=== PATIENT | female | born 1945 | race Caucasian/White ===

== ENCOUNTER 2017-05-16 18:17 | Inpatient (IN) | payer BC ==
[~2017-05-16] VITALS: Ht 165.1 cm; Wt 100.6 kg
[~2017-05-16 18:17] MED LIST: ALPR0.5T PO; CARV12.579 PO; FAMO40TA52 PO; MELO-110 PO; METF500T4 PO; TRAM-40 PO; VALS80TA2 PO
[2017-05-16] MEDS ORDERED: ACETAMINOPHEN 500 MG TAB PO STA (21:18)
[2017-05-16] MEDS ORDERED: ASPIRIN 325 MG TAB PO STA (21:18)
[2017-05-16 22:08] LABS: BASOPHILS % 0.6 % (0.0-2.0); EOSINOPHILS # 0.2 10^3/ul (0.0-0.5); EOSINOPHILS % 4.4 % (0.0-7.0); HEMATOCRIT 38.5 % (37.0-47.0); LYMPHOCYTES # 2.3 10^3/ul (0.8-2.9); LYMPHOCYTES % 45.4 % (15.0-51.0); MEAN CORPUSCULAR HEMOGLOBIN 32.7 pg (29.0-33.0); MEAN CORPUSCULAR HGB CONC 33.8 g/dl (32.0-37.0); MEAN CORPUSCULAR VOLUME 96.7 fl (82.0-101.0); MONOCYTE # 0.5 10^3/ul (0.3-0.9); MONOCYTES % 9.1 % (0.0-11.0); NEUTROPHILS % 40.3 % (39.0-77.0); PLATELET COUNT 167 10^3/UL (140-415); RED BLOOD COUNT 3.98 10^6/ul (4.20-5.40)
--- NOTE | 2017-05-16 22:21 | RADRPT ---
PROCEDURE: CHEST - 1 VIEW CLINICAL INDICATION: 72-year-old female with chest pain. TECHNIQUE: A single frontal AP semi-erect portable view of the chest was performed. The images we re reviewed on a PACS workstation. COMPARISON: Chest x-ray February 16, 2016. FINDINGS: The cardiomediastinal silhouette normal limits. There is a shallow inspiration. There is mild biba silar subsegmental atelectasis. There is no evidence for an infiltrate. There is no evidence for c ongestive heart failure. There is no evidence for pneumothorax. The osseous structures are intact. IMPRESSION: Shallow inspiration with mild bibasilar subsegmental atelectasis. .Jaun Thompson MD, Date Time Electronically viewed and signed by .Jaun Thompson MD, on 05/16/2017 22:21 .M/
[2017-05-16 22:28] LABS: INR 1.07; PROTIME 13.9 Sec (12.2-14.2); PT RATIO 1.1
[2017-05-16 22:29] LABS: PARTIAL THROMBOPLASTIN TIME 30.1 Sec (25.0-35.0)
[2017-05-16 22:31] LABS: ANION GAP 12 (8-16); BLOOD UREA NITROGEN 15 mg/dl (7-20); CALCIUM 9.7 mg/dl (8.4-10.2); CARBON DIOXIDE 27 mmol/L (21-31); CHLORIDE 105 mmol/L (97-110); CREATININE 0.75 mg/dl (0.44-1.00); GLUCOSE 104 mg/dl (70-220); POTASSIUM 3.9 mmol/L (3.5-5.1); SODIUM 140 mmol/L (135-144)
[2017-05-16 22:58] LABS: TROPONIN-I < 0.012 ng/ml (0.00-0.12)
[2017-05-16] MEDS ORDERED: AMLO5TAB4 PO (23:23)
[2017-05-16] MEDS ORDERED: PANT40TA4 PO (23:23)
[2017-05-16] MEDS ORDERED: CARV25TA79 PO (23:23)
[2017-05-16] MEDS ORDERED: NAPR-688 PO (23:23)
[2017-05-16] MEDS ORDERED: GLIP5TAB13 PO (23:27)
[2017-05-17] VITALS (11 sets, daily range): BP systolic 134–177; BP diastolic 62–85; PULSE 62–68; RESP 18–19; Ht 165.1 cm; Wt 100.6 kg
[2017-05-17] MEDS ORDERED: LORAZEPAM 2 MG INJ IV ONE (02:00)
--- NOTE | 2017-05-17 02:48 | ERA ---
ER Documentation Chief Complaint Date/Time DATE: 05/17/17 TIME: 02:46 Chief Complaint chest pain, SOB x 1 week. CP radiating to back and left arm. +BOSCH HPI 72-year-old female with chest pain shortness breath for 1 week. She has been advised to the back and left arm. Pain is mild to moderate intensity with associated diaphoresis. No other current complaints. No nausea no vomiting. ROS All systems reviewed and are negative except as per history of present illness. Medications Home Meds Reported Medications Glipizide* (Glipizide*) 5 Mg Tablet, 10 MG PO AC BREAKFAST BEDTIME, TAB 05/16/17 Pantoprazole* (Pantoprazole*) 40 Mg Tablet.dr, 40 MG PO AC BREAKFAST, TAB 05/16/17 Carvedilol* (Carvedilol*) 25 Mg Tablet, 25 MG PO BID, #60 TAB 05/16/17 Naproxen* (Naproxen*) 500 Mg Tablet, 500 MG PO BID Y for PAIN, TAB 05/16/17 Amlodipine Besylate* (Norvasc*) 5 Mg Tablet, 5 MG PO DAILY, TAB 05/16/17 Meloxicam* (Mobic*) 15 Mg Tablet, 15 MG PO DAILY, #30 TAB 02/17/16 Tramadol Hcl* (Ultram*) 50 Mg Tablet, 50 MG PO BID Y for PAIN, TAB 02/17/16 Discontinued Reported Medications Famotidine* (Famotidine*) 40 Mg Tablet, 40 MG PO HS, #30 TAB 02/17/16 Alprazolam* (Xanax*) 0.5 Mg Tab, 0.5 MG PO BID Y for ANXIETY, TAB 02/17/16 Carvedilol* (Carvedilol*) 12.5 Mg Tablet, 12.5 MG PO BID 01/30/12 Discontinued Scripts Metformin* (Glucophage*) 500 Mg Tab, 500 MG PO WITH BREAKFAST DINNE, #60 TAB Prov:BENJIE GARCIA 02/17/16 Valsartan* (Diovan*) 80 Mg Tablet, 80 MG PO BID for 30 Days, TAB 3 Refills Prov:BENJIE GARCIA F 02/17/16 Allergies Allergies: Coded Allergies: No Known Drug Allergies (Unverified Allergy, Unknown, 05/16/17) Uncoded Allergies: FLU SHOT (Allergy, Unknown, VOMITING,HEADACHE, 02/08/14) PMhx/Soc History of Surgery: No Anesthesia Reaction: No Hx Neurological Disorder: No Hx Respiratory Disorders: No Hx Cardiac Disorders: Yes (HIGH BLOOD PRESSURE) Hx Psychiatric Problems: No Hx Miscellaneous Medical Probl: Yes (KIDNEY STONES; DM) Hx Alcohol Use: No Hx Substance Use: No Hx Tobacco Use: No Smoking Status: Never smoker Physical Exam Vitals Vital Signs Date Time Temp Pulse Resp B/P Pulse Ox O2 Delivery O2 Flow Rate FiO2 05/17/17 02:15 65 20 152/66 95 Room Air 05/17/17 01:00 63 17 158/77 98 Room Air 05/16/17 23:00 62 20 158/71 96 Room Air 05/16/17 22:00 62 17 178/71 97 Room Air 05/16/17 18:44 98.4 73 18 188/96 97 Physical Exam Const: [] Head: Atraumatic Eyes: Normal Conjunctiva ENT: Normal External Ears, Nose and Mouth. Neck: Full range of motion..~ No meningismus. Resp: Clear to auscultation bilaterally Cardio: Regular rate and rhythm, no murmurs Abd: Soft, non tender, non distended. Normal bowel sounds Skin: No petechiae or rashes Back: No midline or flank tenderness Ext: No cyanosis, or edema Neur: Awake and alert Psych: Normal Mood and Affect Result Diagram: 05/16/17214805/16/172148 Results 24 hrs Laboratory Tests Test 05/16/17 21:49 White Blood Count 5.010^3/ul Red Blood Count 3.9810^6/ul Hemoglobin 13.0g/dl Hematocrit 38.5% Mean Corpuscular Volume 96.7fl Mean Corpuscular Hemoglobin 32.7pg Mean Corpuscular Hemoglobin Concent 33.8g/dl Red Cell Distribution Width 13.0% Platelet Count 31625^3/UL Mean Platelet Volume 10.0fl Neutrophils % 40.3% Lymphocytes % 45.4% Monocytes % 9.1% Eosinophils % 4.4% Basophils % 0.6% Nucleated Red Blood Cells % 0.0/100WBC Neutrophils # (Manual) 2.010^3/ul Lymphocytes # 2.310^3/ul Monocytes # 0.510^3/ul Eosinophils # 0.210^3/ul Basophils # 0.010^3/ul Nucleated Red Blood Cells # 0.010^3/ul Prothrombin Time 13.9Sec Prothrombin Time Ratio 1.1 INR International Normalized Ratio 1.07 Activated Partial Thromboplast Time 30.1Sec Sodium Level 140mmol/L Potassium Level 3.9mmol/L Chloride Level 105mmol/L Carbon Dioxide Level 27mmol/L Anion Gap 12 Blood Urea Nitrogen 15mg/dl Creatinine 0.75mg/dl Glucose Level 104mg/dl Calcium Level 9.7mg/dl Troponin I < 0.012ng/ml Current Medications Medications (Trade) Dose Ordered Sig/Teodoro Route PRN Reason Start Time Stop Time Status Last Admin Dose Admin Aspirin (Aspirin) 325 mg ONCE STAT PO 05/16/17 21:18 05/16/17 21:20 DC 05/16/17 22:10 Acetaminophen (Tylenol Tab) 1,000 mg ONCE STAT PO 05/16/17 21:18 05/16/17 21:20 DC 05/16/17 22:10 Lorazepam (Ativan) 1 mg ONCE ONCE IV 05/17/17 02:00 05/17/17 02:01 DC 05/17/17 01:56 Procedures/MDM EKG: Rate/Rhythm: Normal Sinus Rhythm QRS, ST, T-waves: No changes consistent w/ acute ischemia Impression: No evidence of ischemia or arrhythmia Chest X-ray 1V Interpreted by me: Soft Tissue: No acute abnormalities Bones: No acute abnormalities Mediastinum/Cardiac Silhouette/Lungs: No acute abnormalities Patient's symptoms are concerning for cardiac cause will require inpatient workup and continuous monitoring. Further w/u for ischemia, arrhythmia, PE or dissection will be deferred to the inpatient team. Accepting Care Team: Current data and ongoing care discussed. Time: 2:30 AM Primary Provider: Eris Consulting: [XOXOXO] Outstanding Data: none Departure Diagnosis: Primary Impression: Chest pain Qualified Code: R07.9 - Chest pain, unspecified type Condition: Serious JAYDEN MOYA May 17, 2017 02:47
[2017-05-17 04:24] LABS: CREATINE KINASE 86 IU/L (23-200)
[2017-05-17 04:35] LABS: CK-MB 0.81 ng/ml (0.0-2.4)
[2017-05-17 04:40] LABS: TROPONIN-I < 0.012 ng/ml (0.00-0.12)
[2017-05-17] MEDS ORDERED: ONDANSETRON 4 MG INJ IV PRN (06:00)
[2017-05-17] MEDS ORDERED: ACETAMINOPHEN 325 MG TAB PO PRN (06:00)
[2017-05-17] MEDS ORDERED: AMLODIPINE 5 MG TAB PO SCH ×2 (07:00→09:00)
[2017-05-17] MEDS ORDERED: GLUCOSE GEL 15 GRAM TUBE BUCCAL PRN (07:00)
[2017-05-17] MEDS ORDERED: GLUCOSE GEL 15 GRAM TUBE PO PRN ×2 (07:00)
[2017-05-17] MEDS ORDERED: DEXTROSE 50% 50 ML SYRINGE IV PRN ×2 (07:00)
[2017-05-17] MEDS ORDERED: GLUCAGON 1 MG INJ IM PRN (07:00)
[2017-05-17] MEDS: PANTOPRAZOLE (EC) 40 MG TAB PO SCH (07:10)
[2017-05-17] MEDS: AMLODIPINE 5 MG TAB PO SCH (07:25)
[2017-05-17] MEDS: INSULIN ASPART [NOVOLOG] 3 ML PEN SC SCH ×4 (07:55→21:00)
[2017-05-17] MEDS: glipiZIDE 5 MG TAB PO SCH ×2 (08:06→18:00)
--- NOTE | 2017-05-17 10:36 | HP ---
Date/Time of Note Date/Time of Note DATE: 05/17/17 TIME: 10:30 Assessment/Plan VTE Prophylaxis VTE Prophylaxis Intervention: SCD's Lines/Catheters IV Catheter Type (from [facility]): [facility] Urinary Cath still in place: No Assessment/Plan Assessment/Plan 72-year-old female with; 1. Chest pain, left-sided, radiating to the left shoulder, reproducible on palpation, previous similar history over the past year, negative angiogram in 2011, negative cardiac workup last year, negative cardiac enzymes 2 so far with a stable EKG. 2D echocardiogram pending to complete workup. Likely atypical chest pain, CT angiogram of the chest pending as patient has been hypertensive and reports some dyspnea on exertion as an outpatient. Blood pressure control Check fasting lipid panel and hemoglobin A1c. Hold off NSAIDs, proton pump inhibitors possible gastritis. 2. Transient left-sided weakness reported, left-sided headache with left-sided facial numbness transient, correlating with elevated blood pressure. Blood pressure control MRI/MRA brain, MRA neck pending 3. Hypertension, uncontrolled: Continue outpatient medication, will add ARB/ Cozaar given her history of diabetes and need for additional blood pressure control. 4. Morbid obesity: Lifestyle modification, patient is trying to exercise more but limited by current symptoms. Diabetic, low-fat, low-sodium diet. 5. Gastritis/gastroesophageal reflux disease: Continue proton pump inhibitors Prophylaxis: SCDs to lower extremity for DVT prophylaxis, proton pump inhibitors Disposition: Blood pressure control, MRI/MRA brain, MRA neck pending, CT angiogram pending, follow-up on third cardiac enzymes and 2D echocardiogram done today. Discharge planning likely in a.m. HPI/ROS Admit Date/Time Admit Date/Time May 17, 2017 at 02:36 Hx of Present Illness Chief complaint: Chest pain, left-sided headache, left shoulder pain. History of presenting illness: This is a 72-year-old female, with history of hypertension difficult to control, morbid obesity, diabetes mellitus, hyperlipidemia who presented emergency department with complaint of left-sided chest pain radiating to her shoulder, also reporting headache and occasional slurred speech. Patient did discuss her symptoms with her primary care physician apparently the day prior and was told to go to the emergency department, she waited 24 hours before coming to the ER with ongoing symptoms. Patient reports that for the past week or 2 she has been having intermittent episodes of left-sided chest pain radiating to her shoulder, she does not feel well overall. She has been having episodes of headaches primary left-sided with sometimes slurred speech. She reports compliance with her medications, she checks her blood sugars, checks her blood pressure and reports that the highest systolic blood pressure had a home or 150s-160s. She is noted to be significantly hypertensive in the emergency department with systolic blood pressures in the 190s. She does report that her symptoms seem to be noticeable when her blood pressure runs high. She had a chest x-ray in the emergency department which was unremarkable. She was admitted for rule out acute coronary syndrome. She did have an angiogram in 2011 with no obstructive coronary artery disease. She had an echocardiogram last year which was stable. Her cardiac enzymes are negative 2 this morning, echocardiogram was done. Based on her history and reports of transient neurological symptoms, MRI MRA of the brain will be obtained. I will also do a CT angiogram of her chest to rule out aneurysm as her chest pain is significantly atypical, she already had a negative cardiac workup, will look for alternative diagnosis. She denies fevers, chills, abdominal pain, urinary symptoms, cough, shortness of breath. She does report dyspnea on exertion and inability to complete her exercise routine like she used to for the past 2 weeks. ROS Constitutional: fatigue Respiratory: other (Decreased exercise tolerance, dyspnea on exertion) Cardiovascular: chest pain Gastrointestinal: no complaints Genitourinary: no complaints Musculoskeletal: other (Left shoulder pain) Neurologic: headache (Transient, primarily left-sided) Psychological: no complaints PMH/Family/Social Past Medical History Hypertension Hyperlipidemia Diabetes mellitus Morbid obesity Gastroesophageal reflux disease versus gastritis Chest wall left-sided atypical pain for months to years Past Surgical History Past Surgical Hx: other (Status post back surgery remotely) Social History She lives alone Alcohol Use: none Smoking Status: Never smoker Drug Use: none Exam/Review of Systems Vital Signs Vitals Vital Signs Date Time Temp Pulse Resp B/P Pulse Ox O2 Delivery O2 Flow Rate FiO2 05/17/17 08:32 62 18 167/77 96 Room Air 05/17/17 07:33 98.1 Exam Constitutional: alert, oriented, well developed (Morbidly obese) Respiratory: clear to auscultation, normal air movement Cardiovascular: nl pulses, regular rate and rhythm Gastrointestinal: non-tender, soft Musculoskeletal: nl extremities to inspection Extremities: normal pulses, other (No edema, clubbing or cyanosis) Neurological: [employer]OTHING SU[employer]OR II-XII intact, nl mental status, nl speech, nl strength, other (Resolved left sided facial numbness) Labs Result Diagram: 05/16/17214805/16/172148 Medications Medications Current Medications Ondansetron HCl (Zofran Inj) 4 mg Q4H PRN IV NAUSEA AND/OR VOMITING; Start at 06:00 Pantoprazole (Protonix Tab) 40 mg DAILY@06 PO Last administered on 05/17/17 07 :10; Admin Dose 40 MG; Start 05/17/17 at 06:00 Acetaminophen (Tylenol Tab) 650 mg Q6H PRN PO PAIN AND OR ELEVATED TEMP; Start 05/17/17 at 06:00 Diagnostic Test (Pha) (Accu-Chek) 1 ea 02 XX ; Start 05/18/17 at 02:00 Diagnostic Test (Pha) (Accu-Chek) 1 ea 02 XX ; Start 05/18/17 at 02:00 Miscellaneous Information 1 ea NOTE XX ; Start 05/17/17 at 07:00 Glucose (Glutose) 15 gm Q15M PRN PO DECREASED GLUCOSE; Start 05/17/17 at 07:00 Glucose (Glutose) 22.5 gm Q15M PRN PO DECREASED GLUCOSE; Start 05/17/17 at 07: 00 Dextrose (D50w Syringe) 25 ml Q15M PRN IV DECREASED GLUCOSE; Start 05/17/17 at 07:00 Dextrose (D50w Syringe) 50 ml Q15M PRN IV DECREASED GLUCOSE; Start 05/17/17 at 07:00 Glucagon (Glucagen) 1 mg Q15M PRN IM DECREASED GLUCOSE; Start 05/17/17 at 07:00 Glucose (Glutose) 15 gm Q15M PRN BUCCAL DECREASED GLUCOSE; Start 05/17/17 at 07 :00 Amlodipine Besylate (Norvasc) 5 mg DAILY PO Last administered on 05/17/17 07: 25; Admin Dose 5 MG; Start 05/17/17 at 07:07 Carvedilol (Coreg) 25 mg BID PO Last administered on 05/17/17 07:25; Admin Dose 25 MG; Start 05/17/17 at 07:07 Losartan Potassium (Cozaar) 25 mg BID PO ; Start 05/17/17 at 10:00 Procedures Procedures PROCEDURE: CHEST - 1 VIEW CLINICAL INDICATION: 72-year-old female with chest pain. TECHNIQUE: A single frontal AP semi-erect portable view of the chest was performed. The images were reviewed on a PACS workstation. COMPARISON: Chest x-ray February 16, 2016. FINDINGS: The cardiomediastinal silhouette normal limits. There is a shallow inspiration. There is mild bibasilar subsegmental atelectasis. There is no evidence for an infiltrate. There is no evidence for congestive heart failure. There is no evidence for pneumothorax. The osseous structures are intact. IMPRESSION: Shallow inspiration with mild bibasilar subsegmental atelectasis. EKG 05/16/17: Reviewed, normal sinus rhythm, no acute changes or chronic changes seen. BENJIE GARCIA May 17, 2017 10:36
[2017-05-17] MEDS: LOSARTAN 25 MG TAB PO SCH ×2 (11:26→21:48)
--- NOTE | 2017-05-17 11:44 | RADRPT ---
Echocardiogram Report Patient Name: KAREN SUBRAMANIAN Gender: Female Date: 1945 Study Date: 17-May-2017 Salvage Winder And Inspector: Elvia Love [facility] Location: [id number] Ref. Physician: CHARLEE DUBOIS Quality: Adequate Procedures: Transthoracic echocardiogram with complete 2D, M-Mode, and doppler examination. Indications: Chest Pain. 2D/M Mode Doppler Measurement Value Normal Ranges Measurement Value Normal Ranges AoR Diam MM 3.0 cm SOWMYA Vmax 2.7 cm2 ACS MM 1.9 cm SOWMYA VTI 2.7 cm2 LA/Ao MM 1.1 AV Mean Kwabena 0.9 m/sec LA Dimen MM 3.4 cm AV Mean PG 3.6 mmHg LVIDd 2D 4.5 3.5 - 5.6 cm AV Peak Kwabena 1.2 m/sec LVIDs 2D 3.2 2.1 - 4.1 cm AV Peak PG 6.2 mmHg LVPWd 2D 1.1 0.6 - 1.1 cm AV VTI 26.8 cm IVSd 2D 1.0 0.6 - 1.1 cm LVOT Peak Kwabena 1.1 m/sec EDV 2D 92.5 cm3 LVOT Peak PG 4.7 mmHg ESV 2D 32.0 cm3 MV E Peak Kwabena 0.7 m/sec LA Dimen 2D 3.4 2.3 - 4.0 cm MV A Peak Kwabena 1.0 m/sec LVOT Diam 2.0 cm MV E/A 0.7 MV Decel Time 275 msec MV Decel Barron 3 MV E/A 0.7 TR Peak Kwabena 1.9 m/sec TR Peak PG 14.6 mmHg RVSP 23.0 mmHg Findings Left Ventricle: Normal left ventricular systolic function. Normal left ventricular cavity size. Mild concentric left ventricular hypertrophy. Ejection fraction is visually estimated at 60 %. Tissue Doppler/Mitral Doppler indices are consistent with impaired relaxation (Stage I diastolic dysfunction). Right Ventricle: Normal right ventricular size. Normal right ventricular systolic function. Left Atrium: The left atrium is normal in size. Right Atrium: The right atrium is normal in size. Mitral Valve: Normal appearance and function of the mitral valve with trace physiologic regurgitation. Aortic Valve: Normal appearance of the aortic valve. No significant aortic stenosis or insufficiency. Tricuspid Valve: Normal appearance of the tricuspid valve. Estimated peak PA systolic pressure 23 mmHg. There is trace tricuspid regurgitation. Pulmonic Valve: Normal pulmonic valve appearance. Pericardium: Normal pericardium with no significant pericardial effusion. Aorta: Normal aortic root. IVC: The IVC is not well visualized. Conclusions 1.Normal left ventricular systolic function. Normal left ventricular cavity size. Mild concentric left ventricular hypertrophy. Ejection fraction is visually estimated at 60 %. Tissue Doppler/Mitral Doppler indices are consistent with impaired relaxation (Stage I diastolic dysfunction). 2.Normal right ventricular size. Normal right ventricular systolic function. 3.The left atrium is normal in size. 4.The right atrium is normal in size. 5.No significant valvular stenosis or regurgitation seen. 6.Normal pericardium with no significant pericardial effusion. Electronically Signed By: Mars Daniels 17-May-2017 11:44:04 -0700 Patient Name: KAREN SUBRAMANIAN Study Date: 17-May-2017 [id number]
[2017-05-17 12:33] LABS: BASOPHILS % 0.4 % (0.0-2.0); EOSINOPHILS # 0.2 10^3/ul (0.0-0.5); EOSINOPHILS % 4.3 % (0.0-7.0); HEMATOCRIT 39.2 % (37.0-47.0); HEMOGLOBIN 13.1 g/dl (12.0-16.0); LYMPHOCYTES # 1.9 10^3/ul (0.8-2.9); LYMPHOCYTES % 43.2 % (15.0-51.0); MEAN CORPUSCULAR HEMOGLOBIN 32.8 pg (29.0-33.0); MEAN CORPUSCULAR HGB CONC 33.4 g/dl (32.0-37.0); MEAN CORPUSCULAR VOLUME 98.2 fl (82.0-101.0); MEAN PLATELET VOLUME 10.2 fl (7.4-10.4); MONOCYTE # 0.5 10^3/ul (0.3-0.9); MONOCYTES % 12.1 % (0.0-11.0); PLATELET COUNT 181 10^3/UL (140-415); RED BLOOD COUNT 3.99 10^6/ul (4.20-5.40); RED CELL DISTRIBUTION WIDTH 13.1 % (11.5-14.5); WHITE BLOOD COUNT 4.5 10^3/ul (4.8-10.8)
[2017-05-17 12:57] LABS: CHOL/HDL RATIO 5.4 RATIO
[2017-05-17 12:58] LABS: CREATINE KINASE 82 IU/L (23-200)
[2017-05-17 12:59] LABS: CALCIUM 9.6 mg/dl (8.4-10.2); CREATININE 0.7 mg/dl (0.44-1.00); POTASSIUM 4.2 mmol/L (3.5-5.1)
[2017-05-17 13:10] LABS: CK-MB 0.66 ng/ml (0.0-2.4)
[2017-05-17 13:12] LABS: TROPONIN-I < 0.012 ng/ml (0.00-0.12)
[2017-05-17] MEDS ORDERED: IODIXANOL LOCM 50 ML BTL ONE (13:39)
[2017-05-17] MEDS ORDERED: SOD CHLORIDE 0.9% 100 ML ONE (13:39)
[2017-05-17] MEDS ORDERED: IODIXANOL LOCM 100 ML BTL ONE (13:39)
--- NOTE | 2017-05-17 15:03 | RADRPT ---
PROCEDURE: CT angiogram of the chest with contrast. CLINICAL INDICATION: Rule out pulmonary embolism or aneurysm. TECHNIQUE: CT scan of the chest with contrast was performed on a multidetector high-resolution CT scan. The patient was scanned following the uncomplicated intravenous administration of 100 ml Omni paque 350. Coronal and sagittal reformatted images were obtained from the axial source images. Stand marc CT angiogram of the chest with contrast protocols were performed. 2-D and 3-D reformats were per formed. The total exam CTDI equals 19.99 mGy and the total exam DLP equals 803.04 mGy-cm. One or more of the following dose reduction techniques were used: - Automated exposure control. - Adjustment of the mA and/or kV according to patient size. Use of iterative reconstruction technique. COMPARISON: Chest same day FINDINGS: The pulmonary outflow tract, right and left main pulmonary arteries, right and left interlobar and primary intersegmental pulmonary arteries are enhance without filling defects. Specifically no cent ral pulmonary emboli. There is no evidence of pulmonary arterial hypertension. No evidence of righ t heart strain. There is atherosclerosis of the aorta but no aneurysm or dissection. The celiac axis and SMA demons trate hard atherosclerotic plaque but no hemodynamically significant stenosis. The right left subcl adam arteries and brachial cephalic artery are unremarkable. Proximal right and left common caroti d and vertebral arteries are unremarkable. The heart is within normal limits in size without pericardial effusion. No evidence of pleural effu sions and pneumothorax. No evidence of mediastinal hilar or axillary lymphadenopathy. 6 mm nonca lcified pulmonary nodule involving the posterior inferior right lower lobe. Interval follow up in 6 months is recommended. No other pulmonary nodules bilaterally. There is mild chronic interstitial lung disease involving the lingula left upper lobe, right middle lobe and both lower lobes. No evid ence of acute lung infiltrates. Status post cholecystectomy. No biliary ductal dilation. Images of the upper abdomen are unremarka ble. The thoracic and upper abdominal aguila are unremarkable. There are degenerative changes of the thor acic and upper lumbar spine but no acute osseous findings or osteoblastic/osteolytic lesions. IMPRESSION: 1. No evidence of central pulmonary emboli. No evidence pulmonary arterial hypertension or right he art strain. 2. No evidence of aortic aneurysm or dissection. 3. 6 mm irregular noncalcified pulmonary nodule involving the posterior inferior right lower lobe. Interval follow up in 6 months is recommended. No other pulmonary nodules. 4. No evidence of thoracic effusions or lymphadenopathy. 5. Chronic bilateral interstitial lung disease. 6. Status post cholecystectomy. No biliary ductal dilation. RPTAT:AAJJ Stephenie Perdomo Physician Date Time Electronically viewed and signed by Stephenie Perdomo, Physician on 05/17/2017 15:02 /
[2017-05-17] MEDS ORDERED: SOD CHLORIDE 0.9% 1,000 ML IV SCH (16:00)
[2017-05-17] MEDS: traMADol 50 MG TAB PO PRN ×2 (16:29→23:50)
[2017-05-18] VITALS (13 sets, daily range): BP systolic 101–164; BP diastolic 50–84; PULSE 56–70; RESP 17–19
[2017-05-18] MEDS: ACCU-CHEK XX SCH ×2 (02:00)
[2017-05-18] MEDS: PANTOPRAZOLE (EC) 40 MG TAB PO SCH (06:29)
[2017-05-18] MEDS: glipiZIDE 5 MG TAB PO SCH ×2 (06:31→16:30)
[2017-05-18 07:52] LABS: MAGNESIUM 2.1 mg/dl (1.7-2.5); PHOSPHORUS 5.2 mg/dl (2.5-4.9)
[2017-05-18] MEDS: INSULIN ASPART [NOVOLOG] 3 ML PEN SC SCH ×4 (07:55→21:00)
[2017-05-18 07:58] LABS: ALBUMIN 3.8 g/dl (3.3-4.9); ALBUMIN/GLOBULIN RATIO 0.88; BILIRUBIN,INDIRECT 0.4 mg/dl (0-1.1); BILIRUBIN,TOTAL 0.4 mg/dl (0.2-1.3); CALCIUM 9.1 mg/dl (8.4-10.2); CREATININE 0.71 mg/dl (0.44-1.00); POTASSIUM 3.9 mmol/L (3.5-5.1); TOTAL PROTEIN 8.1 g/dl (6.1-8.1)
[2017-05-18] MEDS: LOSARTAN 25 MG TAB PO SCH ×2 (08:06→21:05)
[2017-05-18] MEDS: AMLODIPINE 5 MG TAB PO SCH (08:07)
--- NOTE | 2017-05-18 09:49 | RADRPT ---
PROCEDURE: MRI Brain without contrast. CLINICAL INDICATION: CVA. TECHNIQUE: An MRI of the brain was performed utilizing the following sequences: Sagittal and axial T1 weighted, axial T2 weighted, axial diffusion weighted with ADC mapping, coronal GRE, and axial F LAIR. COMPARISON: Brain MRI 02/17/2016. FINDINGS: No diffusion weighted abnormalities are seen to suggest the presence of acute ischemia or recent inf arct. No hypointense signal abnormalities are seen on the GRE images to suggest the presence of blo od degradation products. There is no evidence of intracranial hemorrhage, mass effect, or midline s hift. No extra-axial fluid collections are seen. The ventricles and sulci are mildly enlarged indica tive of volume loss. There are mild scattered foci of T2 FLAIR hyperintensity in the periventricular, deep, and subcortic al white matter, which are nonspecific in etiology but likely reflect chronic small vessel ischemic changes. No abnormal intracranial vascular flow void is noted. The visualized paranasal sinuses demonstrate 1 .5 cm probable mucous retention cyst in the left maxillary sinus otherwise mild scattered mucosal th ickening. IMPRESSION: 1. No acute intracranial hemorrhage, infarction or mass. 2. Mild chronic small vessel ischemic changes. 3. Mild generalized cerebral volume loss. RPTAT: HFN .Oliver Holbrook MD, Date Time Electronically viewed and signed by .Oliver Holbrook MD, MD on 05/17/2017 16:00 .N/
--- NOTE | 2017-05-18 09:54 | RADRPT ---
PROCEDURE: US Carotids. CLINICAL INDICATION: Weakness. Clinical concern for stenosis TECHNIQUE: Multiple sonographic of the carotid bifurcation region and vertebral arteries were obta ined utilizing sarkar scale, duplex and color-flow imaging. COMPARISON: 02/17/2016 FINDINGS: RIGHT CAROTID MEASUREMENTS: PSV (cm/s)EDV (cm/s) Common Carotid [id number] Internal Carotid Artery - [id number] Internal Carotid Artery - [id number] Internal Carotid Artery - [id number] External Carotid Artery-79 Vertebral Artery-35 PSVR (ICA/CCA)1.3 LEFT CAROTID MEASUREMENTS: PSV (cm/s)EDV (cm/s) Common Carotid [id number] Internal Carotid Artery - [id number] Internal Carotid Artery - [id number] Internal Carotid Artery - [id number] External Carotid Artery-77 Vertebral Artery-53 PSVR (ICA/CCA)1.3 Intimal thickening involving the distal common carotid artery is greater on the right has not change d significantly since the prior examination There is antegrade flow within the vertebral arteries bilaterally. IMPRESSION: 1. No evidence for hemodynamically significant carotid artery stenosis or interval change from 01/30. 2. Antegrade flow in the vertebral arteries bilaterally. Physician Flor Date Time Electronically viewed and signed by Physician Flor on 05/17/2017 18:32 /
[2017-05-18] MEDS: traMADol 50 MG TAB PO PRN (10:25)
--- NOTE | 2017-05-18 13:52 | PN ---
Date/Time of Note Date/Time of Note DATE: 05/18/17 TIME: 13:52 Assessment/Plan VTE Prophylaxis VTE Prophylaxis Intervention: SCD's Lines/Catheters IV [facility] Saline [facility] Urinary Cath still in place: No Assessment/Plan Assessment/Plan 72-year-old female with; 1. Atypical chest pain, left-sided, radiating to the left shoulder, reproducible on palpation, previous similar history over the past year, negative angiogram in 2011, negative cardiac workup last year, negative cardiac enzymes and stable EKG. 2D echocardiogram unchanged. CT angiogram within normal No further workup needed. 2. Transient left-sided weakness reported, left-sided headache with left-sided facial numbness transient, correlating with elevated blood pressure. Blood pressure control Now patient complaining of generalized weakness, thyroid function testing pending, ESR pending. MRI/MRA brain within normal limits, patient could not tolerate MRA of the neck therefore carotid Dopplers were done and came back stable. 3. Hypertension, uncontrolled: Much better controlled with current regimen. 4. Diabetes mellitus: A1c 6.9, blood sugar well controlled on her outpatient regimen. 5. Morbid obesity: Lifestyle modification, patient is trying to exercise more but limited by current symptoms. Diabetic, low-fat, low-sodium diet. 6. Gastritis/gastroesophageal reflux disease: Continue proton pump inhibitors 7. Chronic back pain: Tramadol as needed for pain. Patient has been on it as an outpatient. Prophylaxis: SCDs to lower extremity for DVT prophylaxis, proton pump inhibitors Disposition: Blood pressure control, thyroid function testing, ESR, apparently patient may qualify for acute rehab unit, if she is eligible for insurance will plan for discharge to ARU in the next 24 hours otherwise she may need to go to a senior care facility. Subjective 24 Hr Interval Summary Free Text/Dictation Patient still has multiple complaints, however she denies chest pain now, denies neurological deficit per se but complains of some pain when swallowing, also with evaluation by PT today patient is easily short of breath, she is again morbidly obese. She does have previous back surgery. She was evaluated by speech therapy the patient has NO dysphagia, just complains of pain on one side of her throat when she swallows. She is again complaining of multiple different complaints and finally is asking for her hair to be checked for possible poisoning. Exam/Review of Systems Vital Signs Vitals Vital Signs Date Time Temp Pulse Resp B/P Pulse Ox O2 Delivery O2 Flow Rate FiO2 05/18/17 12:00 63 05/18/17 11:49 97.9 18 130/61 95 05/17/17 18:50 Room Air Intake and Output 05/17/17 05/17/17 05/18/17 15:00 23:00 07:00 Intake Total 525 ml 500 ml Balance 525 ml 500 ml Exam Constitutional: alert, obese (Morbid), oriented Respiratory: clear to auscultation, normal air movement Cardiovascular: nl pulses, regular rate and rhythm Gastrointestinal: non-tender, soft Musculoskeletal: nl extremities to inspection Extremities: normal pulses, other (No edema, clubbing or cyanosis) Neurological: [employer] II-XII intact, nl mental status, nl speech, other (Complains of generalized weakness, but strength seems to be equal at least on exam, she mainly has decreased exercise tolerance and dyspnea on exertion.) Results Result Diagram: 05/17/17 1147 05/18/17 0700 Results 24 hrs Laboratory Tests Test 05/17/17 17:58 05/17/17 21:45 05/18/17 07:00 05/18/17 08:05 Bedside Glucose 117 98 94 Sodium Level 142 Potassium Level 3.9 Chloride Level 103 Carbon Dioxide Level 26 Anion Gap 17 H Blood Urea Nitrogen 16 Creatinine 0.71 Glucose Level 101 Calcium Level 9.1 Phosphorus Level 5.2 H Magnesium Level 2.1 Total Bilirubin 0.4 Direct Bilirubin 0.00 Indirect Bilirubin 0.4 Aspartate Amino Transf (AST/SGOT) 36 Alanine Aminotransferase (ALT/SGPT) 50 Alkaline Phosphatase 69 Total Protein 8.1 Albumin 3.8 Globulin 4.30 H Albumin/Globulin Ratio 0.88 Test 05/18/17 11:47 Bedside Glucose 119 Medications Medications Current Medications Ondansetron HCl (Zofran Inj) 4 mg Q4H PRN IV NAUSEA AND/OR VOMITING; Start at 06:00 Pantoprazole (Protonix Tab) 40 mg DAILY@06 PO Last administered on 05/18/17t 06 :29; Admin Dose 40 MG; Start 05/17/17 at 06:00 Acetaminophen (Tylenol Tab) 650 mg Q6H PRN PO PAIN AND OR ELEVATED TEMP; Start 05/17/17 at 06:00 Diagnostic Test (Pha) (Accu-Chek) 1 ea 02 XX ; Start 05/18/17 at 02:00 Diagnostic Test (Pha) (Accu-Chek) 1 ea 02 XX ; Start 05/18/17 at 02:00 Miscellaneous Information 1 ea NOTE XX ; Start 05/17/17 at 07:00 Glucose (Glutose) 15 gm Q15M PRN PO DECREASED GLUCOSE; Start 05/17/17 at 07:00 Glucose (Glutose) 22.5 gm Q15M PRN PO DECREASED GLUCOSE; Start 05/17/17 at 07: 00 Dextrose (D50w Syringe) 25 ml Q15M PRN IV DECREASED GLUCOSE; Start 05/17/17 at 07:00 Dextrose (D50w Syringe) 50 ml Q15M PRN IV DECREASED GLUCOSE; Start 05/17/17 at 07:00 Glucagon (Glucagen) 1 mg Q15M PRN IM DECREASED GLUCOSE; Start 05/17/17 at 07:00 Glucose (Glutose) 15 gm Q15M PRN BUCCAL DECREASED GLUCOSE; Start 05/17/17 at 07 :00 Amlodipine Besylate (Norvasc) 5 mg DAILY PO Last administered on 05/18/17 08: 07; Admin Dose 5 MG; Start 05/17/17 at 07:07 Carvedilol (Coreg) 25 mg BID PO Last administered on 05/18/17 08:08; Admin Dose 25 MG; Start 05/17/17 at 07:07 Losartan Potassium (Cozaar) 25 mg BID PO Last administered on 05/18/17 08:06; Admin Dose 25 MG; Start 05/17/17 at 10:00 Tramadol HCl (Ultram) 50 mg BID PRN PO PAIN Last administered on 05/18/17 10: 25; Admin Dose 50 MG; Start 05/17/17 at 16:30 Procedures Procedures PROCEDURE: US Carotids. CLINICAL INDICATION: Weakness. Clinical concern for stenosis TECHNIQUE: Multiple sonographic of the carotid bifurcation region and vertebral arteries were obtained utilizing sarkar scale, duplex and color-flow imaging. COMPARISON: 02/17/2016 FINDINGS: RIGHT CAROTID MEASUREMENTS: PSV (cm/s) EDV (cm/s) Common Carotid Artery 92 14 Internal Carotid Artery - proximal 62 13 Internal Carotid Artery - mid 57 14 Internal Carotid Artery - distal 66 18 External Carotid Artery- 79 Vertebral Artery- 35 PSVR (ICA/CCA) 1.3 LEFT CAROTID MEASUREMENTS: PSV (cm/s) EDV (cm/s) Common Carotid Artery 79 15 Internal Carotid Artery - proximal 77 18 Internal Carotid Artery - mid 70 21 Internal Carotid Artery - distal 54 13 External Carotid Artery- 77 Vertebral Artery- 53 PSVR (ICA/CCA) 1.3 Intimal thickening involving the distal common carotid artery is greater on the right has not changed significantly since the prior examination There is antegrade flow within the vertebral arteries bilaterally. IMPRESSION: 1. No evidence for hemodynamically significant carotid artery stenosis or interval change from 02/17/2016. 2. Antegrade flow in the vertebral arteries bilaterally. Physician Flor Date Time Electronically viewed and signed by Physician Flor on 05/17/2017 18:32 PROCEDURE: MRI Brain without contrast. CLINICAL INDICATION: CVA. TECHNIQUE: An MRI of the brain was performed utilizing the following sequences : Sagittal and axial T1 weighted, axial T2 weighted, axial diffusion weighted with ADC mapping, coronal GRE, and axial FLAIR. COMPARISON: Brain MRI 02/17/2016. FINDINGS: No diffusion weighted abnormalities are seen to suggest the presence of acute ischemia or recent infarct. No hypointense signal abnormalities are seen on the GRE images to suggest the presence of blood degradation products. There is no evidence of intracranial hemorrhage, mass effect, or midline shift. No extra- axial fluid collections are seen. The ventricles and sulci are mildly enlarged indicative of volume loss. There are mild scattered foci of T2 FLAIR hyperintensity in the periventricular , deep, and subcortical white matter, which are nonspecific in etiology but likely reflect chronic small vessel ischemic changes. No abnormal intracranial vascular flow void is noted. The visualized paranasal sinuses demonstrate 1.5 cm probable mucous retention cyst in the left maxillary sinus otherwise mild scattered mucosal thickening. IMPRESSION: 1. No acute intracranial hemorrhage, infarction or mass. 2. Mild chronic small vessel ischemic changes. 3. Mild generalized cerebral volume loss. RPTAT: HFN .Oliver Holbrook MD, Date Time Electronically viewed and signed by .Oliver Holbrook MD, MD on 05/17/2017 16: 00 PROCEDURE: CT angiogram of the chest with contrast. CLINICAL INDICATION: Rule out pulmonary embolism or aneurysm. TECHNIQUE: CT scan of the chest with contrast was performed on a multidetector high-resolution CT scan. The patient was scanned following the uncomplicated intravenous administration of 100 ml Omnipaque 350. Coronal and sagittal reformatted images were obtained from the axial source images. Standard CT angiogram of the chest with contrast protocols were performed. 2-D and 3-D reformats were performed. The total exam CTDI equals 19.99 mGy and the total exam DLP equals 803.04 mGy- cm. One or more of the following dose reduction techniques were used: - Automated exposure control. - Adjustment of the mA and/or kV according to patient size. Use of iterative reconstruction technique. COMPARISON: Chest same day FINDINGS: The pulmonary outflow tract, right and left main pulmonary arteries, right and left interlobar and primary intersegmental pulmonary arteries are enhance without filling defects. Specifically no central pulmonary emboli. There is no evidence of pulmonary arterial hypertension. No evidence of right heart strain. There is atherosclerosis of the aorta but no aneurysm or dissection. The celiac axis and SMA demonstrate hard atherosclerotic plaque but no hemodynamically significant stenosis. The right left subclavian arteries and brachial cephalic artery are unremarkable. Proximal right and left common carotid and vertebral arteries are unremarkable. The heart is within normal limits in size without pericardial effusion. No evidence of pleural effusions and pneumothorax. No evidence of mediastinal hilar or axillary lymphadenopathy. 6 mm noncalcified pulmonary nodule involving the posterior inferior right lower lobe. Interval follow up in 6 months is recommended. No other pulmonary nodules bilaterally. There is mild chronic interstitial lung disease involving the lingula left upper lobe, right middle lobe and both lower lobes. No evidence of acute lung infiltrates. Status post cholecystectomy. No biliary ductal dilation. Images of the upper abdomen are unremarkable. The thoracic and upper abdominal aguila are unremarkable. There are degenerative changes of the thoracic and upper lumbar spine but no acute osseous findings or osteoblastic/osteolytic lesions. IMPRESSION: 1. No evidence of central pulmonary emboli. No evidence pulmonary arterial hypertension or right heart strain. 2. No evidence of aortic aneurysm or dissection. 3. 6 mm irregular noncalcified pulmonary nodule involving the posterior inferior right lower lobe. Interval follow up in 6 months is recommended. No other pulmonary nodules. 4. No evidence of thoracic effusions or lymphadenopathy. 5. Chronic bilateral interstitial lung disease. 6. Status post cholecystectomy. No biliary ductal dilation. RPTAT:AAJJ Stephenie Perdomo Physician Date Time Electronically viewed and signed by Stephenie Perdomo, Physician on 05/17/2017 15:02 BENJIE GARCIA May 18, 2017 13:52
[2017-05-19] VITALS (10 sets, daily range): BP systolic 111–148; BP diastolic 52–80; PULSE 56–65; RESP 18
[2017-05-19] MEDS: ACCU-CHEK XX SCH ×2 (02:00)
[2017-05-19] MEDS: PANTOPRAZOLE (EC) 40 MG TAB PO SCH (06:17)
[2017-05-19 07:50] LABS: BASOPHILS % 0.6 % (0.0-2.0); EOSINOPHILS # 0.2 10^3/ul (0.0-0.5); EOSINOPHILS % 4.6 % (0.0-7.0); HEMOGLOBIN 13.2 g/dl (12.0-16.0); LYMPHOCYTES % 39.7 % (15.0-51.0); MEAN CORPUSCULAR HEMOGLOBIN 32.4 pg (29.0-33.0); MEAN CORPUSCULAR VOLUME 98.3 fl (82.0-101.0); MEAN PLATELET VOLUME 10.5 fl (7.4-10.4); MONOCYTE # 0.5 10^3/ul (0.3-0.9); MONOCYTES % 9.7 % (0.0-11.0); NEUTROPHILS % 45.2 % (39.0-77.0); PLATELET COUNT 188 10^3/UL (140-415); RED BLOOD COUNT 4.07 10^6/ul (4.20-5.40); RED CELL DISTRIBUTION WIDTH 13.2 % (11.5-14.5)
[2017-05-19] MEDS: INSULIN ASPART [NOVOLOG] 3 ML PEN SC SCH ×3 (07:55→16:34)
[2017-05-19 08:07] LABS: MAGNESIUM 2.2 mg/dl (1.7-2.5); PHOSPHORUS 4.5 mg/dl (2.5-4.9)
[2017-05-19 08:08] LABS: CALCIUM 9.6 mg/dl (8.4-10.2); CREATININE 0.77 mg/dl (0.44-1.00); POTASSIUM 4.3 mmol/L (3.5-5.1)
[2017-05-19] MEDS: glipiZIDE 5 MG TAB PO SCH ×2 (08:24→16:34)
[2017-05-19] MEDS: AMLODIPINE 5 MG TAB PO SCH (08:24)
[2017-05-19] MEDS: LOSARTAN 25 MG TAB PO SCH (08:25)
[2017-05-19] MEDS: traMADol 50 MG TAB PO PRN (11:40)
--- NOTE | 2017-05-19 13:08 | PN ---
Date/Time of Note Date/Time of Note DATE: 05/19/17 TIME: 13:03 Assessment/Plan VTE Prophylaxis VTE Prophylaxis Intervention: SCD's Lines/Catheters IV [facility]from [facility] Saline Lock Urinary Cath still in place: No Assessment/Plan Assessment/Plan 72-year-old female with; 1. Atypical chest pain, left-sided, radiating to the left shoulder, reproducible on palpation, previous similar history over the past year, negative angiogram in 2011, negative cardiac workup last year, negative cardiac enzymes and stable EKG. 2D echocardiogram unchanged. CT angiogram within normal No further workup needed. 2. Transient left-sided weakness reported, left-sided headache with left-sided facial numbness transient, correlating with elevated blood pressure. Blood pressure control Now patient complaining of generalized weakness, thyroid function testing within normal limits, ESR within normal limit. MRI/MRA brain within normal limits, patient could not tolerate MRA of the neck therefore carotid Dopplers were done and came back stable. Patient to be discharged to acute rehab unit today if accepted. 3. Hypertension, uncontrolled: Much better controlled with current regimen. 4. Diabetes mellitus: A1c 6.9, blood sugar well controlled on her outpatient regimen. 5. Morbid obesity: Lifestyle modification, patient is trying to exercise more but limited by current symptoms. Diabetic, low-fat, low-sodium diet. 6. Gastritis/gastroesophageal reflux disease: Continue proton pump inhibitors 7. Chronic back pain: Tramadol as needed for pain. Patient has been on it as an outpatient. Prophylaxis: SCDs to lower extremity for DVT prophylaxis, proton pump inhibitors Disposition: Plan for discharge to ARU today if patient accepted. Subjective 24 Hr Interval Summary Free Text/Dictation Patient feels slightly better, no acute findings, additional tests including thyroid function testing and ESR normal yesterday. She is awaiting acceptance at ARU for discharge today hopefully. Exam/Review of Systems Vital Signs Vitals Vital Signs Date Time Temp Pulse Resp B/P Pulse Ox O2 Delivery O2 Flow Rate FiO2 05/19/17 12:27 65 05/19/17 11:27 98.6 18 111/52 96 05/17/17 18:50 Room Air Intake and Output 05/18/17 05/18/17 05/19/17 15:00 23:00 07:00 Intake Total 750 ml 300 ml Output Total 4 ml Balance 746 ml 300 ml Exam Constitutional: alert, obese, oriented, well developed Cardiovascular: nl pulses, regular rate and rhythm Gastrointestinal: non-tender, soft Musculoskeletal: nl extremities to inspection Extremities: normal pulses Neurological: [employer] II-XII intact, nl mental status, nl speech, other ( Generalized weakness improving) Results Result Diagram: 05/19/17 0655 05/19/17 0655 Results 24 hrs Laboratory Tests Test 05/18/17 15:00 05/18/17 16:27 05/18/17 21:08 05/19/17 06:55 Erythrocyte Sedimentation Rate 25 Thyroid Stimulating Hormone (TSH) 0.808 Free Thyroxine 0.98 Bedside Glucose 122 136 White Blood Count 5.0 Red Blood Count 4.07 L Hemoglobin 13.2 Hematocrit 40.0 Mean Corpuscular Volume 98.3 Mean Corpuscular Hemoglobin 32.4 Mean Corpuscular Hemoglobin Concent 33.0 Red Cell Distribution Width 13.2 Platelet Count 188 Mean Platelet Volume 10.5 H Neutrophils % 45.2 Lymphocytes % 39.7 Monocytes % 9.7 Eosinophils % 4.6 Basophils % 0.6 Nucleated Red Blood Cells % 0.0 Neutrophils # (Manual) 2 Lymphocytes # 2.0 Monocytes # 0.5 Eosinophils # 0.2 Basophils # 0.0 Nucleated Red Blood Cells # 0.0 Sodium Level 142 Potassium Level 4.3 Chloride Level 104 Carbon Dioxide Level 29 Anion Gap 13 Blood Urea Nitrogen 13 Creatinine 0.77 Glucose Level 106 Calcium Level 9.6 Phosphorus Level 4.5 Magnesium Level 2.2 Test 05/19/17 07:56 05/19/17 11:37 Bedside Glucose 108 162 Medications Medications Current Medications Ondansetron HCl (Zofran Inj) 4 mg Q4H PRN IV NAUSEA AND/OR VOMITING; Start at 06:00 Pantoprazole (Protonix Tab) 40 mg DAILY@06 PO Last administered on 05/19/17t 06 :17; Admin Dose 40 MG; Start 05/17/17 at 06:00 Acetaminophen (Tylenol Tab) 650 mg Q6H PRN PO PAIN AND OR ELEVATED TEMP; Start 05/17/17 at 06:00 Diagnostic Test (Pha) (Accu-Chek) 1 ea 02 XX ; Start 05/18/17 at 02:00 Diagnostic Test (Pha) (Accu-Chek) 1 ea 02 XX ; Start 05/18/17 at 02:00 Miscellaneous Information 1 ea NOTE XX ; Start 05/17/17 at 07:00 Glucose (Glutose) 15 gm Q15M PRN PO DECREASED GLUCOSE; Start 05/17/17 at 07:00 Glucose (Glutose) 22.5 gm Q15M PRN PO DECREASED GLUCOSE; Start 05/17/17 at 07: 00 Dextrose (D50w Syringe) 25 ml Q15M PRN IV DECREASED GLUCOSE; Start 05/17/17 at 07:00 Dextrose (D50w Syringe) 50 ml Q15M PRN IV DECREASED GLUCOSE; Start 05/17/17 at 07:00 Glucagon (Glucagen) 1 mg Q15M PRN IM DECREASED GLUCOSE; Start 05/17/17 at 07:00 Glucose (Glutose) 15 gm Q15M PRN BUCCAL DECREASED GLUCOSE; Start 05/17/17 at 07 :00 Amlodipine Besylate (Norvasc) 5 mg DAILY PO Last administered on 05/19/17 08: 24; Admin Dose 5 MG; Start 05/17/17 at 07:07 Carvedilol (Coreg) 25 mg BID PO Last administered on 05/19/17 08:25; Admin Dose 25 MG; Start 05/17/17 at 07:07 Losartan Potassium (Cozaar) 25 mg BID PO Last administered on 05/19/17 08:25; Admin Dose 25 MG; Start 05/17/17 at 10:00 Tramadol HCl (Ultram) 50 mg BID PRN PO PAIN Last administered on 05/19/17 11: 40; Admin Dose 50 MG; Start 05/17/17 at 16:30 BENJIE GARCIA May 19, 2017 13:07
--- NOTE | 2017-05-19 14:30 | PDOCDIS ---
Discharge Instructions CONDITION Patient Condition: Stable HOME CARE INSTRUCTIONS: Special Diet: carb controlled ACTIVITY: Activity Restrictions: Slowly Increase Activity FOLLOW UP/APPOINTMENTS Follow-up Plan Follow-up with primary care physician within 1 week Home health physical therapy and nurse to check for medication compliance. BENJIE GARCIA May 19, 2017 14:30
[2017-05-19] MEDS ORDERED: LOSA25TA2 PO (17:02)
[2017-05-19] MEDS ORDERED: AMLO-145 PO (17:04)
== END 2017-05-19 18:34 | disposition home health service (06) | DRG 313 ==
LOC: E/R 18:17 → TEL 05-17 02:36
PROVIDERS: ADMIT Internal Medicine; ATTEND Internal Medicine
DX: R07.89 Other chest pain (principal); E66.01 Morbid (severe) obesity due to excess calories; E11.9 Type 2 diabetes mellitus without complications; I10 Essential (primary) hypertension; R53.1 Weakness; R20.0 Anesthesia of skin; R51 Headache; Z68.37 Body mass index [BMI] 37.0-37.9, adult; Z71.3 Dietary counseling and surveillance; K21.9 Gastro-esophageal reflux disease without esophagitis; K29.70 Gastritis, unspecified, without bleeding; E78.5 Hyperlipidemia, unspecified; Z79.4 Long term (current) use of insulin
CPT/HCPCS: 36415; 70551; 71010; 71275; 80048; 80053; 80061; 82550; 82553; 82962; 83036; 83735; 84100; 84439; 84443; 84484; 85025; 85610; 85651; 85730; 92610; 93005; 93306; 93880; 96374; 97162; J1815; J2060; J7030; Q9967